=== PATIENT | male | born 1965 | race African-American/Black ===

== ENCOUNTER 2018-10-09 16:29 | Emergency (ER) | payer SELFPAY ==
--- NOTE | 2018-10-09 18:01 | ULT ---
EXAM: Testicular/scrotal ultrasound HISTORY: Right testicular pain and swelling COMPARISON: None TECHNIQUE: Multiplanar grayscale and color Doppler images were obtained in a testicular/scrotal ultra sound. Spectral analysis of the Doppler waveforms of the testicles were performed. FINDINGS: Right testicle: Normal in echogenicity. No focal mass. Normal internal flow. Left testicle: Normal in echogenicity. No focal mass. Normal internal flow. Right epididymis. Enlarged with increased flow Left epididymis. No epididymal cyst. Normal internal flow. A small to moderate right hydrocele is present. No varicocele is present. IMPRESSION: Right epididymitis with reactive hydrocele
[2018-10-09 18:13] LABS: #Eosinphils 0.1 thou/uL (0.0-0.7); #Lymphocytes 2.3 thou/uL (1.20-3.40); #Monocytes 0.9 thou/uL (0.11-0.59); #Neutrophils 7.1 thou/uL (1.40-6.50); %Basophils 0.4 % (0.0-1.0); %Eosinophils 0.9 % (0.0-10.0); %Lymphocytes 22.1 % (21.0-51.0); %Monocytes 8.2 % (0.0-10.0); %Neutrophils 68.3 % (42.0-75.0); Mean Corpuscular Hemoglobin 23.1 pg (27.0-31.0); Mean Platelet Volume 9.6 fL (7.4-10.4); Platelet Count 250 thou/uL (130-400); RBC Distribution Width 15.8 % (11.5-14.5); Red Blood Cell (RBC) Count 6.07 mill/uL (4.70-6.10); White Blood Cell (WBC) Count 10.3 thou/uL (4.8-10.8)
[2018-10-09 18:30] LABS: Hypochromia SLIGHT = 6-15 cells (100X) (0-5/hpf); MDiff Complete? YES; Microcytosis SLIGHT = 6-15 cells (100X) (0-5/hpf); Platelet Morphology Comment Appears Adequate
[2018-10-09 18:39] LABS: ALT (SGPT) 22 U/L (8-55); AST (SGOT) 18 U/L (5-34); Albumin 4.6 g/dL (3.5-5.0); Alkaline Phosphatase 91 U/L (40-150); Anion Gap 14 mmol/L (10-20); BUN (Urea Nitrogen) 11 mg/dL (8.4-25.7); Bilirubin, Total 1.4 mg/dL (0.2-1.2); Calc. Creatinine Clearance 0 mL/min (70-130); Calcium 9.8 mg/dL (7.8-10.44); Carbon Dioxide 25 mmol/L (22-29); Chloride 103 mmol/L (98-107); Estimated GFR-MDRD Greater than 90; Globulin 3.2 g/dL (2.4-3.5); Glucose 90 mg/dL (70-105); Potassium 4.3 mmol/L (3.5-5.1); Protein, Total 7.8 g/dL (6.0-8.3); Sodium 138 mmol/L (136-145)
[2018-10-09 18:56] LABS: Bacteria/HPF 1+ HPF (None Seen); Bilirubin Negative (Negative); Blood, Urine Negative (Negative); Clarity Clear (Clear); Glucose, Urine (Dipstick) Normal (Negative); Leukocyte 250 Leu/uL (Negative); Nitrite Negative (Negative); Protein, Urine (Dipstick) 10 mg/dL (Neg-Trace); RBC/HPF 0-3 HPF (0-3); Urobilinogen Normal mg/dL (Less than 2)
== END 2018-10-09 19:20 | disposition home or self-care (01) ==
LOC: ERS 16:29
DX: N45.1 Epididymitis (principal)
CPT/HCPCS: 36415; 76870; 80053; 81003; 81015; 85025; 93976

== ENCOUNTER 2019-10-04 10:44 | Emergency (ER) | payer SELFPAY ==
[2019-10-06 21:26] LABS: Chlam.trachomatis by PCR,Urine Not Detected (NotDetected)
== END 2019-10-04 11:34 | disposition home or self-care (01) ==
LOC: ERS 10:44
DX: Z20.2 Contact with and (suspected) exposure to infections with a predominantly sexual mode of transmission (principal)
CPT/HCPCS: 87491; 87591; 99283

== ENCOUNTER 2019-12-13 09:00 | Emergency (ER) | payer SELFPAY | END 2019-12-13 09:17 | disposition home or self-care (01) | LOC: ERS 09:00 | DX: S01.01XD Laceration without foreign body of scalp, subsequent encounter (principal) ==

== ENCOUNTER 2021-03-11 15:55 | Emergency (ER) | payer SELFPAY ==
[2021-03-11] MEDS ORDERED: Ketorolac Tromethamine 30 MG/ML VIAL ONE (16:59)
== END 2021-03-11 17:23 | disposition home or self-care (01) ==
LOC: ERS 15:55
DX: M25.542 Pain in joints of left hand (principal); M19.042 Primary osteoarthritis, left hand; F17.210 Nicotine dependence, cigarettes, uncomplicated
CPT/HCPCS: 96372; J1885